=== PATIENT | female | born 1975 | race Caucasian/White ===

== ENCOUNTER 2018-02-26 09:00 | Emergency (ER) | payer MEDICAID ==
[~2018-02-26] VITALS: Ht 167.6 cm; Wt 83.0 kg
[2018-02-26 09:01] VITALS: BP 144/75
== END 2018-02-26 09:27 | disposition home or self-care (01) ==
LOC: EMS 09:01
DX: G51.0 Bell's palsy (principal); F41.9 Anxiety disorder, unspecified
CPT/HCPCS: 99283

== ENCOUNTER 2018-03-08 13:33 | Emergency (ER) | payer MEDICAID ==
[~2018-03-08] VITALS: Ht 167.6 cm; Wt 83.6 kg
[2018-03-08] MEDS ORDERED: LIDOCAINE 5% TRANSDERMAL PATCH TD ONE (14:30)
[2018-03-08] MEDS ORDERED: KETOROLAC TROMETHAMINE 30 MG/ML VIAL IM ONE (14:30)
[2018-03-08] MEDS ORDERED: METHOCARBAMOL 500 MG TABLET PO ONE (14:30)
[2018-03-08 15:16] VITALS: BP 126/71
== END 2018-03-08 15:18 | disposition home or self-care (01) ==
LOC: EMS 13:34
DX: M54.2 Cervicalgia (principal); H92.01 Otalgia, right ear; F41.9 Anxiety disorder, unspecified; G51.0 Bell's palsy; R03.0 Elevated blood-pressure reading, without diagnosis of hypertension
CPT/HCPCS: 96372; 99283; J1885

== ENCOUNTER 2021-09-05 08:14 | Emergency (ER) | payer MEDICAID ==
[~2021-09-05] VITALS: Ht 167.6 cm; Wt 81.8 kg
[2021-09-05] MEDS ORDERED: FAMOTIDINE 10 MG/ML 2 ML VIAL IVP ONE (08:30)
[2021-09-05] MEDS ORDERED: SODIUM CHLORIDE 0.9% 1,000 ML IV ONE ×2 (08:30→10:15)
[2021-09-05] MEDS ORDERED: ONDANSETRON HCL 4 MG/2 ML VIAL IVP ONE ×2 (08:30→10:15)
[2021-09-05 09:01] LABS: BASOPHILS % (AUTO) 0.4 % (0.0-2.0); EOSINOPHILS % (AUTO) 0.6 % (1.0-6.0); HEMOGLOBIN 9.9 g/dL (12.0-16.0); LYMPHOCYTES # (AUTO) 0.8 K/uL (1.0-4.8); LYMPHOCYTES % (AUTO) 8.5 % (22.0-44.0); MEAN CORPUSCULAR HEMOGLOBIN 22.6 pg (26.0-34.0); MEAN CORPUSCULAR HGB CONC 31.8 G/dL (31.0-37.0); MEAN CORPUSCULAR VOLUME 71 fL (80-100); MONOCYTES # (AUTO) 0.6 K/uL (0.1-1.0); MONOCYTES % (AUTO) 6.5 % (2.0-9.0); NEUTROPHILS # (AUTO) 7.4 K/uL (1.8-7.7); PLATELET COUNT (AUTO) 319 K/uL (150-450); RED BLOOD CELL COUNT(AUTO) 4.37 MIL/uL (4.00-5.20); RED CELL DISTRIBUTION WIDTH 19.6 % (11.5-14.5)
[2021-09-05 09:13] LABS: ANION GAP 9 mmol/L (8-16); CALCIUM, TOTAL 8.7 mg/dL (8.8-10.5); CARBON DIOXIDE 25 mmol/L (22-29); CHLORIDE 99 mmol/L (98-107); CREATININE 0.68 mg/dL (0.60-1.30); GLOMERULAR FILTR. RATE CALC > 60 mL/min (>60); GLUCOSE,RANDOM 122 mg/dL (70-110); POTASSIUM 3.8 mmol/L (3.5-5.1); SODIUM SERUM 133 mmol/L (136-145); UREA NITROGEN, BLOOD 13 mg/dL (7-18)
[2021-09-05 09:24] LABS: ALANINE AMINOTRANSFERASE 30 U/L (12-78); ALBUMIN 3.9 g/dL (3.4-5.0); ALKALINE PHOSPHATASE 55 U/L (46-116); ASPARTATE AMINOTRANSFERASE 24 U/L (15-37); BILIRUBIN,TOTAL 0.8 mg/dL (0.1-1.0); HCG,QUANTITATIVE < 1 mIU/mL (0-6); LIPASE 75 U/L (73-393); TOTAL PROTEIN, SERUM 8.4 g/dL (6.4-8.2)
[2021-09-05 09:36] LABS: COVID AG,FIA SOURCE NASOPHARYNGEAL
[2021-09-05] MEDS ORDERED: IOHEXOL 350 MG/ML 100 ML VIAL ONE (10:26)
[2021-09-05] MEDS ORDERED: SODIUM CHLORIDE 0.9% 100 ML ONE (10:26)
[2021-09-05 13:45] VITALS: BP 106/74
[2021-09-05] MEDS ORDERED: ONDA-104 PO (13:48)
== END 2021-09-05 14:19 | disposition home or self-care (01) ==
LOC: EMS 08:17
DX: R11.2 Nausea with vomiting, unspecified (principal); R10.31 Right lower quadrant pain; F41.9 Anxiety disorder, unspecified; Z20.822 Contact with and (suspected) exposure to COVID-19
CPT/HCPCS: 74177; 80053; 83690; 84702; 85025; 87426; 96361; 96374; 96375; 96376; 99285; G0480; J2405; J3490; J7030; J7050; Q9967